=== PATIENT | male | born 1970 | race Caucasian/White ===

== ENCOUNTER 2016-08-20 11:09 | Emergency (ER) | payer SELFPAY ==
[2016-08-20 11:27] VITALS: TEMP 98.2
[2016-08-20] MEDS ORDERED: ONDANSETRON 4 MG/2 ML VIAL IVP ONE (12:04)
[2016-08-20] MEDS ORDERED: NS 1,000 ML IV ONE (12:04)
[2016-08-20] MEDS ORDERED: HYDROmorphONE/DILAUDID 1 MG/ML SYR IVP ONE (12:04)
[2016-08-20] MEDS ORDERED: LORazepam 2 MG/ML INJ IVP ONE (12:05)
[2016-08-20 12:09] LABS: % IMMATURE GRANULYOCYTES 0.7 % (0.0-1.1); ABSOLUTE IMMATURE GRANULOCYTES 0.08 10^3/uL (0.00-0.10); ADD DIFF? NO; ADD MORPH? NO; ADD SCAN? NO; ATYPICAL LYMPHOCYTE FLAG 0 (0-99); FRAGMENT RBC FLAG 0 (0-99); HEMOGLOBIN 14.7 g/dL (13.7-17.5); LEFT SHIFT FLG 0 (0-99); LIPEMIA HEMOLYSIS FLAG 90 (0-99); MEAN CELL HEMOGLOBIN 31.1 pg (27.9-34.1); MEAN CELL HEMOGLOBIN CONCENTR. 34.2 g/dL (32.4-36.7); MEAN CELL VOLUME 90.9 fL (81.5-99.8); MEAN PLATELET VOLUME 10.5 fL (8.7-11.7); PLATELET CLUMPS FLAG 0 (0-99); PLATELET COUNT 221 10^3/uL (150-400); RED BLOOD CELL COUNT 4.73 10^6/uL (4.40-6.38); RED CELL DISTRIBUTION WIDTH 15.6 % (11.5-15.2)
--- NOTE | 2016-08-20 12:09 | EDPHY ---
H & P Stated Complaint: l abd pain/hx pancreatitis Time Seen by Provider: 08/20/16 11:54 HPI/ROS: CHIEF COMPLAINT: Abdominal pain, dehydration HISTORY OF PRESENT ILLNESS: The patient is a 45-year-old man with a history of renal transplant in 2006 is remains on immunosuppressants as well as chronic idiopathic pancreatitis. He states that he began developing pain in his abdomen typical of his pancreatitis 2 days ago. He has been NPO for 36 hours and feels that he is getting dehydrated. He continues to have mild pain. He has not had a fever. He did vomit once yesterday. No diarrhea. He states that is also feeling anxious and mild the tremulous. He denies withdrawal symptoms. He did have a couple of drinks 2 days ago. States that he has never had withdrawal symptoms before. He states that he has had symptoms with anxiety for the last 2 years since he began having difficulties with his pancreas. At that time he had 2 Pancreatic duct stents placed but both failed. REVIEW OF SYSTEMS: Constitutional: denies: chills, fever, recent illness, recent injury EENTM: denies: blurred vision, double vision, nose congestion Respiratory: denies: cough, shortness of breath Cardiac: denies: chest pain, irregular heart rate, lightheadedness, palpitations Gastrointestinal/Abdominal: See HPI Genitourinary: denies: dysuria, frequency, hematuria, pain Musculoskeletal: denies: joint pain, muscle pain Skin: denies: lesions, rash, jaundice, bruising Neurological: denies: headache, numbness, paresthesia, tingling, dizziness, weakness Hematologic/Lymphatic: denies: blood clots, easy bleeding, easy bruising Immunologic/allergic: denies: HIV/AIDS, transplant EXAM: GENERAL: Well-appearing, well-nourished and in no acute distress. HEAD: Atraumatic, normocephalic. EYES: Pupils equal round and reactive to light, extraocular movements intact, sclera anicteric, conjunctiva are normal. ENT: TMs normal, nares patent, oropharynx clear without exudates. Moist mucous membranes. NECK: Normal range of motion, supple without lymphadenopathy or JVD. LUNGS: Breath sounds clear to auscultation bilaterally and equal. No wheezes rales or rhonchi. HEART: Regular rate and rhythm without murmurs, rubs or gallops. ABDOMEN: Mild diffuse pain and tenderness. The right lower quadrant mass consistent with kidney transplant. Nontender. BACK: No CVA tenderness, no spinal tenderness, step-offs or deformities EXTREMITIES: Normal range of motion, no pitting or edema. No clubbing or cyanosis. NEUROLOGICAL: Cranial nerves II through XII grossly intact. Normal speech, normal gait. 5/5 strength, normal movement in all extremities, normal sensation PSYCH: Normal mood, normal affect. SKIN: Warm, dry, normal turgor, no visible rashes or lesions. Source: Patient Exam Limitations: No limitations - Personal History Current Tetanus/Diphtheria Vaccine: Yes - Medical/Surgical History Hx Asthma: No Hx Chronic Respiratory Disease: No Hx Diabetes: No Hx Cardiac Disease: No Hx Renal Disease: Yes Hx Cirrhosis: No Hx Alcoholism: No Hx HIV/AIDS: No Hx Splenectomy or Spleen Trauma: No Other PMH: kidney transplant/pancreatitis - Family History Significant Family History: No pertinent family hx - Social History Smoking Status: Current every day smoker Alcohol Use: Occasionally Drug Use: None Constitutional: Initial Vital Signs Temperature (C) 36.8 C 08/20/16 11:23 Heart Rate 92 08/20/16 11:23 Respiratory Rate 18 08/20/16 11:23 Blood Pressure 135/90 H 08/20/16 11:23 O2 Sat (%) 96 08/20/16 11:23 O2 Delivery Mode Room Air Allergies/Adverse Reactions: iv contrast dye Allergy (Uncoded 08/20/16 11:21) Home Medications: Medication Instructions Recorded Atorvastatin Calcium 08/20/16 Cellcept 08/20/16 Diltiazem 08/20/16 Metoprolol Succinate 08/20/16 Prednisone 08/20/16 Prograf 08/20/16 Medical Decision Making - Diagnostics Imaging: Study: Ultrasound of the: Right upper quadrant Indication: Right upper quadrant pain Results: US scan of the right upper quadrant with special attention to the liver gallbladder and pancreas was obtained. The results of the study are negative for any gallstones, wall thickening or free fluid. The study was read by the radiologist, Dr. Esteban Brown. I viewed the images myself on the PACS system. ED Course/Re-evaluation: I was able to review the patient's recent medical visit through [facility]. His lab work looks similar at that time. He was observed and hydrated and ultimately discharged with a diagnosis of alcoholism, dehydration chronic pancreatitis and renal insufficiency. His creatinine is improved today compared to during this visit. His bilirubin is slightly elevated compared to that visit. I will obtain an ultrasound of his gallbladder. The patient states his pain is controlled. He is really happy with hydration. 3:00 p.m. we discussed the ultrasound results. Will discharge the patient at this time. He is agreeable to this plan. We discussed indications for returning. His pain has been controlled. He is happy with this plan. He has met with case management and been referred to the health clinic. Differential Diagnosis: Partial list of the Differential diagnosis considered include but were not limited to; gastritis, chronic pancreatitis, biliary disease, and although unlikely based on the history and physical exam, I also considered ischemia, acute coronary disease, arrhythmia, Infectious Disease. I discussed these differential diagnoses and the plan with the patient as well as the usual and expected course. The patient understands that the diagnosis is provisional and that in medicine we are not always correct and that further workup is often warranted. Usual and customary warnings were given. All of the patient's questions were answered. The patient was instructed to return to the emergency department should the symptoms at all worsen or return, otherwise to followup with the physician as we discussed. - Data Points Laboratory Results: Laboratory Results 08/20/16 11:55 08/20/16 11:55 08/20/16 08/20/16 11:55 11:55 WBC 12.17 10^3/uL H 10^3/uL (3.80-9.50) RBC 4.73 10^6/uL 10^6/uL (4.40-6.38) Hgb 14.7 g/dL g/dL (13.7-17.5) Hct 43.0 % % (40.0-51.0) MCV 90.9 fL fL (81.5-99.8) MCH 31.1 pg pg (27.9-34.1) MCHC 34.2 g/dL g/dL (32.4-36.7) RDW 15.6 % H % (11.5-15.2) Plt Count 221 10^3/uL 10^3/uL (150-400) MPV 10.5 fL fL (8.7-11.7) Neut % (Auto) 84.5 % H % (39.3-74.2) Lymph % (Auto) 7.7 % L % (15.0-45.0) [place] % (Auto) 6.7 % % (4.5-13.0) Eos % (Auto) 0.1 % L % (0.6-7.6) Baso % (Auto) 0.3 % % (0.3-1.7) Nucleat RBC Rel Count 0.0 % % (0.0-0.2) Absolute Neuts (auto) 10.29 10^3/uL H 10^3/uL (1.70-6.50) Absolute Lymphs (auto) 0.94 10^3/uL L 10^3/uL (1.00-3.00) Absolute Monos (auto) 0.81 10^3/uL H 10^3/uL (0.30-0.80) Absolute Eos (auto) 0.01 10^3/uL L 10^3/uL (0.03-0.40) Absolute Basos (auto) 0.04 10^3/uL 10^3/uL (0.02-0.10) Absolute Nucleated RBC 0.00 10^3/uL 10^3/uL (0-0.01) Immature Gran % 0.7 % % (0.0-1.1) Immature Gran # 0.08 10^3/uL 10^3/uL (0.00-0.10) Sodium 137 mEq/L mEq/L (134-144) Potassium 3.8 mEq/L mEq/L (3.5-5.2) Chloride 106 mEq/L mEq/L (97-110) Carbon Dioxide 20 mEq/l L mEq/l (22-31) Anion Gap 11 mEq/L mEq/L (8-16) BUN 23 mg/dL mg/dL (7-23) Creatinine 1.6 mg/dL H mg/dL (0.7-1.3) Estimated GFR 47 Glucose 176 mg/dL H mg/dL (70-100) Calcium 10.1 mg/dL mg/dL (8.5-10.4) Total Bilirubin 2.1 mg/dL H mg/dL (0.1-1.4) Conjugated Bilirubin 0.5 mg/dL mg/dL (0.0-0.5) Unconjugated Bilirubin 1.6 mg/dL H mg/dL (0.0-1.1) AST 21 IU/L IU/L (17-59) ALT 32 IU/L IU/L (21-72) Alkaline Phosphatase 130 IU/L H IU/L (38-126) Total Protein 8.0 g/dL g/dL (6.3-8.2) Albumin 4.6 g/dL g/dL (3.5-5.0) Lipase 232.0 IU/L IU/L (23-300) Medications Given: Discontinued Medications Hydromorphone HCl (Dilaudid) 1 mg IVP EDNOW ONE Stop: 08/20/16 12:05 Last Admin: 08/20/16 12:20 Dose: 1 mg Sodium Chloride (Ns) 1,000 mls @ 0 mls/hr IV ONCE ONE PRN Reason: Wide Open Stop: 08/20/16 12:05 Last Admin: 08/20/16 12:20 Dose: 1,000 mls Lorazepam (Ativan Injection) 1 mg IVP EDNOW ONE Stop: 08/20/16 12:06 Last Admin: 08/20/16 12:34 Dose: 1 mg Ondansetron HCl (Zofran) 4 mg IVP EDNOW ONE Stop: 08/20/16 12:05 Last Admin: 08/20/16 12:34 Dose: 4 mg Departure - Departure Disposition: Home, Routine, Self-Care Clinical Impression: Anxiety Abdominal pain Qualifiers: Abdominal location: epigastric Qualified Code(s): R10.13 - Epigastric pain Condition: Fair Instructions: Abdominal Pain (ED), Anxiety (ED) Referrals: [facility] [Outside] - As per Instructions [facility] [Clinic] - As per Instructions NONE *PRIMARY CARE P,. [Primary Care Provider] - As per Instructions
[2016-08-20 12:34] LABS: ALANINE AMINOTRANSFERASE 32 IU/L (21-72); ALBUMIN 4.6 g/dL (3.5-5.0); ALKALINE PHOSPHATASE 130 IU/L (38-126); ANION GAP 11 mEq/L (8-16); ASPARTATE AMINOTRANSFERASE 21 IU/L (17-59); BILIRUBIN,TOTAL 2.1 mg/dL (0.1-1.4); BILIRUBIN-CONJUGATED 0.5 mg/dL (0.0-0.5); BILIRUBIN-UNCONJUGATED 1.6 mg/dL (0.0-1.1); CALCIUM 10.1 mg/dL (8.5-10.4); CARBON DIOXIDE 20 mEq/l (22-31); CHLORIDE 106 mEq/L (97-110); CREATININE 1.6 mg/dL (0.7-1.3); GLOMERULAR FILTRATION RATE 47; GLUCOSE 176 mg/dL (70-100); POTASSIUM 3.8 mEq/L (3.5-5.2); SODIUM 137 mEq/L (134-144)
[2016-08-20 13:04] VITALS: RESP 16; O2SAT 95
[2016-08-20 15:39] VITALS: BP 148/87; PULSE 91
== END 2016-08-20 15:28 | disposition home or self-care (01) ==
DX: R10.13 Epigastric pain (principal); F41.9 Anxiety disorder, unspecified; F17.200 Nicotine dependence, unspecified, uncomplicated
CPT/HCPCS: 96374; J1170; J2405